=== PATIENT | male | born 1950 | race African-American/Black ===

== ENCOUNTER 2017-09-18 13:26 | Emergency (ER) | payer MEDICARE, OTHER ==
[~2017-09-18] VITALS: Ht 180.3 cm; Wt 102.1 kg
[~2017-09-18 13:26] MED LIST: GLIMEPIRIDE4 MG ORAL; GLYBURIDE-METF1 EAC1 PO; LEVAQUIN500 MG ORAL; LOSARTAN POTASS50 MG ORAL; MEDROL DOSEPAK4 MG ORAL; METOPROLOL SUCC25 MG ORAL; UNOBMED
[2017-09-18 14:01] VITALS: BP 161/93
[2017-09-18] MEDS ORDERED: ALBUTEROL SULF8.5 GM INH (14:11)
[2017-09-18] MEDS ORDERED: AMOXICILLIN500 MG ORAL (14:11)
[2017-09-18] MEDS ORDERED: PROMETHAZINE-C118 M1 ORAL (14:11)
[2017-09-18] MEDS ORDERED: PREDNISONE20 MG ORAL (14:11)
[2017-09-18 14:15] VITALS: BP 165/89
--- NOTE | 2017-09-18 15:44 | Emergency Room Report ---
History of Present Illness General Chief Complaint: Flu Like Symptoms Source: Patient Present Illness HPI 67-year-old male presents to ED for evaluation of cough x4 days. States cough is productive with greenish phlegm. Notes chills. Afebrile in triage. Notes history of COPD. Denies sick contacts or recent travel. No other aggravating relieving factors. Denies any other associated symptoms Allergies: Coded Allergies: No Known Allergies (Unverified , 11/19/14) Patient History Past Medical History: HTN, COPD, CVA/TIA Past Surgical History: none Social History: Denies: smoking, alcohol use, drug use Immunizations: UTD Reviewed Nursing Documentation: PMH: Agreed, PSxH: Agreed Nursing Documentation-PMH Hx Hypertension: Yes Hx Diabetes: Yes Hx Cancer: No Hx Gastrointestinal Problems: Yes - Gall stones Hx Neurological Problems: Yes Hx Transient Ischemic Attacks: Yes - 2011 Hx Weakness: Yes - Right leg Review of Systems All Other Systems: negative except mentioned in HPI Physical Exam Vital Signs Date Time Temp Pulse Resp B/P (MAP) Pulse Ox O2 Delivery O2 Flow Rate FiO2 09/18/17 13:53 98.2 74 20 161/93 99 Room Air Sp02 EP Interpretation: reviewed, normal General Appearance: no apparent distress, alert, GCS 15, non-toxic Head: normocephalic, atraumatic Eyes: bilateral eye normal inspection, bilateral eye PERRL ENT: hearing grossly normal, normal pharynx, no angioedema, normal voice Neck: full range of motion, supple/symm/no masses Respiratory: chest non-tender, lungs clear, normal breath sounds, speaking full sentences Cardiovascular #1: regular rate, rhythm, no edema Cardiovascular #2: 2+ carotid (R), 2+ carotid (L), 2+ radial (R), 2+ radial (L) , 2+ dorsalis pedis (R), 2+ dorsalis pedis (L) Gastrointestinal: normal bowel sounds, non tender, soft, non-distended, no guarding, no rebound Rectal: deferred Genitourinary: normal inspection, no CVA tenderness Musculoskeletal: back normal, gait/station normal, normal range of motion, non- tender Neurologic: alert, oriented x3, responsive, motor strength/tone normal, sensory intact, speech normal Psychiatric: judgement/insight normal, memory normal, mood/affect normal, no suicidal/homicidal ideation Reflexes: 3+ bicep (R), 3+ bicep (L), 3+ tricep (R), 3+ tricep (L), 3+ knee (R) , 3+ knee (L) Skin: normal color, no rash, warm/dry, well hydrated Lymphatic: no adenopathy Medical Decision Making Diagnostic Impression: Primary Impression: COPD exacerbation ER Course Hospital Course 67-year-old male presents to ED complaining of cough, chills Differential diagnoses include: URI, pharyngitis, otitis media, asthma Clinical course Patient placed on stretcher. After initial history, physical exam reveals an elderly male in no acute distress. Bilateral TM unremarkable. No pharyngeal erythema. No tonsillar exudates. No lymphadenopathy. lungs clear. abdomen soft. given history of COPD, we will prescribe abx Diagnosis - COPD exacerbation Stable and discharged home with Rx Prednisone, Albuterol, amoxicillin, promethazine/codeine. Instructed to followup with PMD. Return to ED if symptoms recur or worsen Last Vital Signs Date Time Temp Pulse Resp B/P (MAP) Pulse Ox O2 Delivery O2 Flow Rate FiO2 09/18/17 13:53 98.2 74 20 161/93 99 Room Air Status: improved Disposition: HOME, SELF-CARE Condition: Stable Scripts Albuterol Sulfate* (ALBUTEROL SULFATE MDI*) 8.5 Gm Hfa.aer.ad 2 PUFF INH Q4H Y for cough/wheezing, #1 EA 0 Refills Prov: MARCUS DUQUE M.D. 09/18/17 Prednisone* (PREDNISONE*) 20 Mg Tablet 40 MG ORAL DAILY, #10 TAB Prov: MARCUS DUQUE M.D. 09/18/17 Codeine/Promethazine Hcl* (PROMETHAZINE-CODEINE SYRUP*) 118 Ml Syrup 5 ML ORAL Q6H Y for For Cough, #118 ML 0 Refills Prov: MARCUS DUQUE M.D. 09/18/17 Amoxicillin* (AMOXIL*) 500 Mg Capsule 500 MG ORAL THREE TIMES A DAY, #21 CAP Prov: MARCUS DUQUE M.D. 09/18/17 [facility]ERR[facility] (PCP) Patient Instructions: Acute Bronchitis, [id number] MARCUS DUQUE M.D. Sep 18, 2017 15:44
== END 2017-09-18 14:16 | disposition home or self-care (01) ==
LOC: EMR 14:14
DX: J44.1 Chronic obstructive pulmonary disease with (acute) exacerbation (principal)
CPT/HCPCS: 99284